=== PATIENT | female | born 1965 | race Caucasian/White ===

== ENCOUNTER → 2020-04-01 08:59 | Outpatient (CLI) | payer BC | END | disposition home or self-care (01) | LOC: D.NM 08:59 | PROVIDERS: ATTEND Internal Medicine Gastroenterology | DX: R10.84 Generalized abdominal pain (principal); R14.0 Abdominal distension (gaseous) ==

== ENCOUNTER → 2020-04-15 08:58 | Outpatient (CLI) | payer BC | END | disposition home or self-care (01) | LOC: D.RAD 08:58 | PROVIDERS: ATTEND Internal Medicine Gastroenterology | DX: R10.12 Left upper quadrant pain (principal); R12 Heartburn; K44.9 Diaphragmatic hernia without obstruction or gangrene ==